=== PATIENT | male | born 1985 | race Caucasian/White ===

== ENCOUNTER 2017-05-29 19:10 | Emergency (ER) | payer SELFPAY ==
[~2017-05-29] VITALS: Ht 180.3 cm; Wt 81.6 kg
[2017-05-29 19:22] VITALS: Ht 180.3 cm; Wt 81.6 kg
[2017-05-29 21:01] LABS: BASOPHIL % 0.4 % (0-2); PLATELET COUNT 171 x10^3mcL (130-400); RED CELL DISTRIBUTION WIDTH 13.8 % (11.5-14.5)
[2017-05-29 21:07] LABS: CALCIUM 8.7 mg/dL (8.5-10.1); CARBON DIOXIDE 30.4 mmol/L (21-32); CHLORIDE SERUM 103 mmol/L (98-107); GFR1 > 60 mL/min; GLUCOSE SERUM 109 mg/dL (74-106); POTASSIUM SERUM 3.7 mmol/L (3.5-5.1); SODIUM SERUM 142 mmol/L (136-145)
[2017-05-29 21:12] LABS: ALBUMIN 3.8 g/dL (3.4-5.0); ALKALINE PHOSPHATASE 68 U/L (46-116); ALT/SGPT 33 U/L (16-63); AST/SGOT 21 U/L (15-37); TOTAL PROTEIN, SERUM 7.6 g/dL (6.4-8.2)
[2017-05-29 21:12] LABS: AMPHETAMINE QUAL UR NONE DETECTED (NEG <=1000)
[2017-05-29 23:18] VITALS: BP 117/77
== END 2017-05-29 23:18 | disposition home or self-care (01) ==
LOC: ED 19:10
PROVIDERS: Emergency Medicine
DX: S16.1XXA Strain of muscle, fascia and tendon at neck level, initial encounter (principal); G89.29 Other chronic pain; J45.909 Unspecified asthma, uncomplicated; V89.2XXA Person injured in unspecified motor-vehicle accident, traffic, initial encounter; Y93.79 Activity, other specified sports and athletics; Y92.89 Other specified places as the place of occurrence of the external cause; Y99.8 Other external cause status
CPT/HCPCS: G0480; J1885; J3010; J7030

== ENCOUNTER 2018-03-06 20:39 | Inpatient (IN) | payer SELFPAY ==
[~2018-03-06] VITALS: Ht 175.3 cm; Wt 74.0 kg
[2018-03-06 22:09] LABS: BASOPHIL % 0.5 % (0-2); PLATELET COUNT 196 x10^3mcL (130-400); RED CELL DISTRIBUTION WIDTH 14.4 % (11.5-14.5)
[2018-03-06 22:20] LABS: CALCIUM 8.4 mg/dL (8.5-10.1); CARBON DIOXIDE 27.4 mmol/L (21-32); CHLORIDE SERUM 102 mmol/L (98-107); CREATININE SERUM 1.1 mg/dL (0.7-1.3); GFR1 > 60 mL/min; GLUCOSE SERUM 105 mg/dL (74-106); POTASSIUM SERUM 3.8 mmol/L (3.5-5.1); SODIUM SERUM 139 mmol/L (136-145)
[2018-03-06 22:25] LABS: ALBUMIN 3.7 g/dL (3.4-5.0); ALKALINE PHOSPHATASE 83 U/L (46-116); ALT/SGPT 25 U/L (16-63); AST/SGOT 15 U/L (15-37); BILIRUBIN TOTAL 0.53 mg/dL (0.20-1.00)
[2018-03-06 22:34] LABS: TOTAL PROTEIN, SERUM 8.3 g/dL (6.4-8.2)
[2018-03-07 00:03] LABS: microscopic required? NO
[2018-03-07 00:42] LABS: AMPHETAMINE QUAL UR NONE DETECTED (See below)
[2018-03-07 00:47] LABS: UA SPECIFIC GRAVITY 1.015 (1.005-1.035); urine erythrocyte NEGATIVE (NEGATIVE)
[2018-03-07 18:14] VITALS: BP 132/78
[2018-03-07 18:48] LABS: CHOLESTEROL/HDL RATIO 3.9; PHOSPHOROUS 4.2 mg/dL (2.5-4.9)
[2018-03-07 19:15] VITALS: BP 122/72
[2018-03-08 05:04] VITALS: BP 140/92
[2018-03-08 07:30] VITALS: BP 135/80
[2018-03-08 11:39] LABS: CALCIUM 9.2 mg/dL (8.5-10.1); CARBON DIOXIDE 24.2 mmol/L (21-32); CHLORIDE SERUM 105 mmol/L (98-107); CREATININE SERUM 0.8 mg/dL (0.7-1.3); GFR1 > 60 mL/min; GLUCOSE SERUM 130 mg/dL (74-106); POTASSIUM SERUM 3.8 mmol/L (3.5-5.1); SODIUM SERUM 142 mmol/L (136-145)
[2018-03-08 11:41] LABS: BASOPHIL % 0.3 % (0-2); PLATELET COUNT 211 x10^3mcL (130-400); RED CELL DISTRIBUTION WIDTH 14.1 % (11.5-14.5)
[2018-03-08 17:16] VITALS: BP 128/64
[2018-03-08 19:30] VITALS: BP 108/65
[2018-03-09 05:23] VITALS: BP 124/72
[2018-03-09 07:45] VITALS: BP 117/74
[2018-03-09 08:09] VITALS: Ht 175.3 cm; Wt 74.0 kg
[2018-03-09] MEDS ORDERED: APAP/HYDROCODON1 T13 PO (11:16)
[2018-03-09] MEDS ORDERED: ATI1 PO (11:17)
[2018-03-09] MEDS ORDERED: NEU100 PO (11:17)
[2018-03-09 12:34] VITALS: BP 117/74
== END 2018-03-09 12:50 | disposition home or self-care (01) | DRG 683 ==
LOC: ED 20:39 → IC 03-07 17:32
PROVIDERS: Emergency Medicine; Family Medicine
DX: N17.0 Acute kidney failure with tubular necrosis (principal); R45.851 Suicidal ideations; F32.9 Major depressive disorder, single episode, unspecified; G89.29 Other chronic pain; J45.909 Unspecified asthma, uncomplicated; F17.210 Nicotine dependence, cigarettes, uncomplicated; M54.2 Cervicalgia; F19.14 Other psychoactive substance abuse with psychoactive substance-induced mood disorder; F12.10 Cannabis abuse, uncomplicated; F11.10 Opioid abuse, uncomplicated; D72.829 Elevated white blood cell count, unspecified; G25.81 Restless legs syndrome; R45.850 Homicidal ideations; Z72.89 Other problems related to lifestyle
CPT/HCPCS: 83880; G0480; J1885; J2060; J2405; J3486; Q0092

== ENCOUNTER 2018-04-16 13:30 | Emergency (ER) | payer MEDICAID ==
[~2018-04-16] VITALS: Ht 180.3 cm; Wt 86.2 kg
[~2018-04-16 13:30] MED LIST: APAP/HYDROCODON1 T13 PO; ATI1 PO; NEU100 PO
[2018-04-16 13:34] VITALS: Ht 180.3 cm; Wt 86.2 kg
[2018-04-16 16:28] LABS: BASOPHIL % 0.6 % (0-2); PLATELET COUNT 201 x10^3mcL (130-400)
[2018-04-16 16:29] LABS: CALCIUM 8.9 mg/dL (8.5-10.1); CARBON DIOXIDE 26.3 mmol/L (21-32); CHLORIDE SERUM 106 mmol/L (98-107); CREATININE SERUM 0.7 mg/dL (0.7-1.3); GFR1 > 60 mL/min; GLUCOSE SERUM 116 mg/dL (74-106); POTASSIUM SERUM 3.8 mmol/L (3.5-5.1); RED CELL DISTRIBUTION WIDTH 14.8 % (11.5-14.5); SODIUM SERUM 142 mmol/L (136-145)
[2018-04-16 16:33] LABS: ALKALINE PHOSPHATASE 72 U/L (46-116); ALT/SGPT 15 U/L (16-63); AST/SGOT 17 U/L (15-37); BILIRUBIN TOTAL 0.8 mg/dL (0.20-1.00); TOTAL PROTEIN, SERUM 7.2 g/dL (6.4-8.2)
[2018-04-16 16:53] LABS: ALBUMIN 3.3 g/dL (3.4-5.0)
[2018-04-16 18:30] LABS: microscopic required? NO
[2018-04-16 18:53] LABS: AMPHETAMINE QUAL UR NONE DETECTED (See below)
[2018-04-16 19:50] LABS: urine erythrocyte NEGATIVE (NEGATIVE)
--- NOTE | 2018-04-16 20:17 | NUR ---
Called the following facilities for placement: [facility], s/w Ludivina, faxed packet for review [facility], s/w Jessi, faxed packet for review [facility], s/w Jessi, no beds [facility], s/w Raquel, no beds
[2018-04-17 15:11] VITALS: BP 143/98
== END 2018-04-17 15:11 | disposition short-term general hospital (02) ==
LOC: ED 13:30
PROVIDERS: Emergency Medicine
DX: S90.811A Abrasion, right foot, initial encounter (principal); G89.29 Other chronic pain; M54.2 Cervicalgia; J45.909 Unspecified asthma, uncomplicated; F17.210 Nicotine dependence, cigarettes, uncomplicated; F19.10 Other psychoactive substance abuse, uncomplicated; X58.XXXA Exposure to other specified factors, initial encounter; Y93.89 Activity, other specified; Y92.89 Other specified places as the place of occurrence of the external cause; Y99.8 Other external cause status
CPT/HCPCS: 90715; G0480